=== PATIENT | female | born 1990 | race African-American/Black ===

== ENCOUNTER → 2016-11-06 | Outpatient (CLI) | payer MEDICAID ==
--- NOTE | 2016-11-06 16:23 | RADIOLOGY REPORT (SQ) ---
EXAM DESCRIPTION: U/S [id number] TRNABD 1GES W/ODOP COMPLETED DATE/TIME: 11/06/2016 3:50 pm REASON FOR STUDY: ENCOUNTER FOR SUPERVISION OF NORMAL Z34.81 ENCOUNTER FOR SUPRVSN OF NOR MAL , FIRST TRIM COMPARISON: None. TECHNIQUE: Transabdominal static and realtime grayscale images acquired of the pelvis. Additional se lected spectral and color Doppler images recorded. All images stored on PACs. bHCG: Not available LIMITATIONS: Urinary bladder is very distended, flattening the lower uterine segment and cervix. FINDINGS: FETUS: Living intrauterine . EGA: 12 weeks 5 days by crown-rump length MARVIN: 05/16/2017 FHR: 150 beats per minute. SUBCHORIONIC BLEED: No SIZE OF BLEED: Not applicable. UTERUS: No masses. No anomalies. 17 x 9 x 7 cm in size CERVICAL LENGTH: 5 cm Closed. RIGHT ADNEXA: Not seen due to adnexal bowel gas LEFT ADNEXA: Not seen due to adnexal bowel gas FREE FLUID: None. OTHER: Placenta is developing anteriorly and is low lying. Because of the distended urinary bladder, it is difficult to discern if placenta previa is present. Recommend a repeat exam sometime later in the 2nd trimester to evaluate for placenta previa. IMPRESSION: LIVING INTRAUTERINE . EGA 12 weeks 5 days Low lying anterior placenta. Recommend repeat exam later in the 2nd trimester to evaluate for place nta previa Trimester of : First - 0 to 13 weeks. TECHNICAL DOCUMENTATION: JOB ID: [id number] [employer]- All Rights Reserved
== END ==
LOC: RAD 15:11
PROVIDERS: ATTEND Nurse Practitioner Women's Health
DX: Z34.81 Encounter for supervision of other normal pregnancy, first trimester (principal)
CPT/HCPCS: 76801

== ENCOUNTER 2017-05-13 04:51 | Inpatient (IN) | payer MEDICAID ==
[2017-05-12 12:53] LABS: APPEARANCE,URINE SLIGHTLY-CLOUDY; BILIRUBIN,URINE NEGATIVE (NEGATIVE); COLOR,URINE YELLOW; GLUCOSE, URINE NEGATIVE (NEGATIVE); KETONES,URINE NEGATIVE (NEGATIVE); LEUKOCYTE ESTERASE,URINE LARGE (NEGATIVE); NITRITE,URINE NEGATIVE (NEGATIVE); PROTEIN,URINE NEGATIVE (NEGATIVE); URINE SPECIFIC GRAVITY 1.011; UROBILINOGEN,URINE NEGATIVE mg/dL (<2.0)
[2017-05-12 12:59] LABS: ABSOLUTE EOSINOPHILS # (AUTO) 0.1 10^3/uL (0.0-0.6); ABSOLUTE LYMPHOCYTES (AUTO) 2.1 10^3/uL (0.5-4.7); ABSOLUTE MONOCYTES (AUTO) 0.7 10^3/uL (0.1-1.4); ABSOLUTE NEUT (AUTO) 8.9 10^3/uL (1.7-8.2); BASOPHILS % (AUTO) 0.3 % (0-2); EOSINOPHILS % (AUTO) 0.9 % (0-6); HEMATOCRIT 36.8 % (36.0-47.0); HEMOGLOBIN 12.4 g/dL (12.0-15.5); LYMPHOCYTES % (AUTO) 18.1 % (13-45); MEAN CORPUSCULAR HEMOGLOBIN 27.3 pg (27.0-33.4); MEAN CORPUSCULAR HGB CONC 33.6 g/dL (32.0-36.0); MEAN CORPUSCULAR VOLUME 81 fl (80-97); MONOCYTES % (AUTO) 5.5 % (3-13); PLATELET COUNT 250 10^3/uL (150-450); RED BLOOD COUNT 4.53 10^6/uL (3.72-5.28); RED CELL DISTRIBUTION WIDTH 17.3 % (11.5-14.0); SEGMENTED NEUTROPHILS % (AUTO) 75.2 % (42-78); TOTAL CELLS COUNTED % (AUTO) 100 %; WHITE BLOOD COUNT 11.8 10^3/uL (4.0-10.5)
[2017-05-12 13:06] LABS: URINE AMPHETAMINES SCREEN NEGATIVE; URINE BARBITURATES SCREEN NEGATIVE; URINE BENZODIAZEPINES SCREEN NEGATIVE; URINE COCAINE SCREEN NEGATIVE; URINE MARIJUANA (THC) SCREEN NEGATIVE; URINE METHADONE SCREEN NEGATIVE; URINE PHENCYCLIDINE SCREEN NEGATIVE
[2017-05-13] MEDS ORDERED: AZITHROMYCIN 500 MG in DEXTROSE 5%-WATER 250 ML IV PRN (05:00)
[2017-05-13] MEDS ORDERED: CEFAZOLIN 1 GM/D5W RTU 1 GM/50 ML RTUPB IV PRN (05:00)
[2017-05-13] MEDS ORDERED: LIDOCAINE 0.5% INJ-PF (5 MG/ML) 50 ML SDV SUBCUT PRN (05:00)
[2017-05-13] MEDS ORDERED: RINGERS SOLUTION,LACTATED 1,500 ML IV PRN (05:00)
[2017-05-13] MEDS ORDERED: LACTATED RINGERS 1000 ML IV PRN (05:00)
[2017-05-13] MEDS ORDERED: AZITHROMYCIN INJ 500 MG VIAL IV ONE (05:35)
[2017-05-13] MEDS ORDERED: OXYTOCIN/NORMAL SALINE 20 UNIT/1,000 ML RTUINJ ONE (07:25)
[2017-05-13] MEDS ORDERED: OXYTOCIN 10 UNIT/ML VIAL ONE (07:26)
[2017-05-13] MEDS ORDERED: MIDAZOLAM 2 MG/2 ML INJ ONE (07:26)
[2017-05-13] MEDS ORDERED: EPHEDRINE SULFATE INJ 50 MG/1 ML AMPULE ONE (07:26)
[2017-05-13] MEDS ORDERED: FENTANYL CITRATE INJ/PF 100 MCG/2 ML AMPUL ONE (07:26)
[2017-05-13] MEDS ORDERED: MORPHINE SULFATE 10 MG/ML INJ IV PRN (08:01)
[2017-05-13] MEDS ORDERED: MEPERIDINE HCL/PF INJ 25 MG/1 ML DISP.SYRIN IV PRN (08:01)
[2017-05-13] MEDS ORDERED: PROMETHAZINE HCL INJ 25 MG/1 ML VIAL IV PRN ×2 (08:01)
[2017-05-13] MEDS ORDERED: ONDANSETRON HCL INJ/PF 4 MG/2 ML SDV IV PRN (08:01)
[2017-05-13] MEDS ORDERED: DIPHENHYDRAMINE HCL 50 MG/ML VIAL IV PRN (08:01)
[2017-05-13] MEDS ORDERED: FENTANYL CITRATE INJ/PF 100 MCG/2 ML AMPUL IV PRN ×3 (08:01)
[2017-05-13] MEDS ORDERED: ACETAMINOPHEN 100 ML IV ONE (08:18)
--- NOTE | 2017-05-13 08:33 | Warning Signs in Babies ---
VOD Warning Signs Datetime Report Generated by [facility]: 05/13/2017 08:32 VOD#608 -Warning Signs in Babies: Needs to be viewed. (05/13/2017 08:20:Pattie Alonso RN)
--- NOTE | 2017-05-13 09:10 | OPERATIVE REPORT E ---
Operative Report NAME: XU ZALDIVAR : 1990 AGE: 26Y DATE OF SURGERY: 05/13/2017 ROOM: 226 PREOPERATIVE DIAGNOSIS: IUP AT TERM WITH PRIOR SECTION. POSTOPERATIVE DIAGNOSIS: IUP AT TERM WITH PRIOR SECTION. PROCEDURE: A repeat low-transverse , delivery of a viable male infant. Apgars were 8 and 9. Weight was 7 pounds 6 ounces. SURGEON: August MARIE M.D. ANESTHESIA: Spinal. ESTIMATED BLOOD LOSS: Less than 600 mL. TISSUE REMOVED OR ALTERED: Placenta. PROCEDURE: Patient was placed in a supine position and rolled on her right side, prepped and draped in sterile fashion. Pfannenstiel incision was made through then existing Pfannenstiel eschar, and the incision extended through the subcutaneous tissue and *------* sharp dissection. Fascia sharply divided, rectus muscle bluntly and sharply divided. *------* sharp dissection. The uterus nicked in the midline, extended bilaterally. was then delivered through the uterine abdominal incision. Nose and mouth suctioned with a bulb syringe. Cord was clamped, the infant was passed from the table. Placenta was manually extracted. Uterus closed in 2 layers using 0 Vicryl, the first in a running stitch and the second in a Lembert stitch, imbricating the first layer. There was an area of bleeding in the midportion, controlled with a [id number] suture of 0 Vicryl. Hemostasis was noted. Fascia closed with 0 Vicryl. Skin was closed with subcuticular absorbable galdino. Patient's urine remained clear throughout her procedure She was taken to the recovery room in good condition, and the to nursery in good condition. DICTATING PHYSICIAN: August MARIE M.D. [id number] PHY#: [id number] ID: [id number] JOB#: [id number] ACCT: [id number] cc:August MARIE M.D. >
[2017-05-13] MEDS ORDERED: METOCLOPRAMIDE HCL INJ/PF 10 MG/2 ML SDV ONE (09:57)
[2017-05-13] MEDS ORDERED: KETOROLAC TROMETHAMINE 60 MG/2 ML SDV ONE (09:57)
[2017-05-13] MEDS ORDERED: DEXAMETHASONE SOD PHOSPHATE INJ 4 MG/1 ML VIAL ONE (09:57)
[2017-05-13] MEDS ORDERED: ONDANSETRON HCL INJ/PF 4 MG/2 ML SDV ONE (09:57)
[2017-05-13] MEDS ORDERED: OXYTOCIN/NORMAL SALINE 20 UNIT/1,000 ML RTUINJ INJ PRN (10:57)
[2017-05-13] MEDS ORDERED: RINGERS SOLUTION,LACTATED 1,000 ML IV PRN (10:58)
[2017-05-13] MEDS ORDERED: OXYCODONE-ACETAMINOPHEN 5-325 MG TABLET PO PRN (11:00)
[2017-05-13] MEDS ORDERED: MEASLES,MUMPS&RUBELLA VACC/PF 0.5 ML VIAL SUBCUT PRN (11:00)
[2017-05-13] MEDS ORDERED: PROMETHAZINE HCL INJ 25 MG/1 ML VIAL IM PRN (11:00)
[2017-05-13] MEDS ORDERED: ACETAMINOPHEN 325 MG TABLET PO PRN (11:00)
[2017-05-13] MEDS ORDERED: DIPH/PERTUSS(ACELL)/TETANUS VAC/PF 0.5 ML SYR (>=10YO) IM PRN (11:00)
[2017-05-13] MEDS ORDERED: SIMETHICONE 80 MG TAB.CHEW PO PRN (11:00)
[2017-05-13] MEDS ORDERED: RINGERS SOLUTION,LACTATED 1,000 ML IV SCH (11:00)
[2017-05-13] MEDS ORDERED: HYDROMORPHONE HCL INJ/PF 2 MG/ML AMPULE IV PRN (11:00)
[2017-05-13] MEDS: IBUPROFEN 800 MG TABLET PO SCH ×2 (11:32→17:56)
[2017-05-13] MEDS: OXYCODONE-ACETAMINOPHEN 5-325 MG TABLET PO PRN ×3 (11:38→23:02)
[2017-05-13] MEDS: DOCUSATE SODIUM 100 MG CAPSULE PO SCH (17:54)
[2017-05-14] MEDS: IBUPROFEN 800 MG TABLET PO SCH ×5 (00:48→23:20)
[2017-05-14 06:46] LABS: HEMOGLOBIN 10.9 g/dL (12.0-15.5); MEAN CORPUSCULAR HEMOGLOBIN 27.5 pg (27.0-33.4); MEAN CORPUSCULAR HGB CONC 34.1 g/dL (32.0-36.0); MEAN CORPUSCULAR VOLUME 81 fl (80-97); PLATELET COUNT 214 10^3/uL (150-450); RED BLOOD COUNT 3.96 10^6/uL (3.72-5.28); RED CELL DISTRIBUTION WIDTH 17.6 % (11.5-14.0); WHITE BLOOD COUNT 14.5 10^3/uL (4.0-10.5)
[2017-05-14] MEDS: PRENATAL VITAMIN W DHA CAPSULE PO SCH (09:46)
[2017-05-14] MEDS: DOCUSATE SODIUM 100 MG CAPSULE PO SCH ×2 (09:47→19:07)
--- NOTE | 2017-05-14 10:40 | PDOC PROGRESS REPORT ---
Subjective-OB Subjective: Post Delivery Day: 26 year old. Denies any needs at this time Physical Exam (OB) Vital Signs: Temp Pulse Resp BP Pulse Ox 98.0 F 66 18 137/71 H 100 05/14/17 08:06 05/14/17 08:06 05/14/17 08:06 05/14/17 08:06 05/14/17 08:06 Intake & Output 05/13/17 05/14/17 05/15/17 06:59 06:59 06:59 Intake Total 1595 Output Total 2550 Balance -955 Weight 126.4 kg - PIH/Pre-Eclampsia DTR's: 2 + Clonus: Negative Headache: Absent Epigastric Pain: No Visual Changes: No - Dressing Removed: No Incision: Dressing - Bilateral Tubal Ligation Dressing Removed: No - Lochia Lochia Amount: Small 10-25 ml Lochia Color: Rubra/Red - Abdomen Description: Tender, Soft Hernia Present: No Bowel Sounds: Normoactive Flatus Presence: Present Stool: No Fundal Description: Firm Fundal Height: u/u - u/2 Objective-Diagnostic Laboratory: 05/14/17 06:35 05/14/17 06:35 WBC 14.5 H RBC 3.96 Hgb 10.9 L Hct 32.0 L MCV 81 MCH 27.5 MCHC 34.1 RDW 17.6 H Plt Count 214
[2017-05-14] MEDS: OXYCODONE-ACETAMINOPHEN 5-325 MG TABLET PO PRN (11:37)
[2017-05-15] MEDS: IBUPROFEN 800 MG TABLET PO SCH ×2 (05:37→12:06)
[2017-05-15] MEDS: PRENATAL VITAMIN W DHA CAPSULE PO SCH (10:28)
[2017-05-15] MEDS: DOCUSATE SODIUM 100 MG CAPSULE PO SCH (10:28)
--- NOTE | 2017-05-15 10:46 | PDOC DISCHARGE SUMMARY ---
Final Diagnosis Discharge Date: 05/15/17 - Final Diagnosis (1) Delivery by elective caesarean section Is this a current diagnosis for this admission?: Yes Discharge Data - Discharge Medication Home Medications: Prenat 115/Iron Fum/Folic/Dss [ 19 Tablet] 1 tab PO DAILY 08/20/14 Reason(s) for Admission: Ceasarean Section-Repeat Procedures: None Intrapartum Procedure(s): : Low Cervical, Transverse - Diagnosis Test Laboratory: Temp Pulse Resp BP Pulse Ox 97.9 F 68 18 125/76 100 05/15/17 10:04 05/15/17 10:04 05/15/17 10:04 05/15/17 10:04 05/15/17 10:04 05/12/17 05/12/17 05/14/17 12:19 12:25 06:35 RBC 4.53 3.96 Hgb 12.4 10.9 L Hct 36.8 32.0 L Urine Opiates Screen NEGATIVE - Discharge information/Instructions Discharge Activity: Activity As Tolerated, Balance Activity w/Rest, No Driving, No Lifting Over 10 Pounds, No Lifting/Push/Pulling, Pelvic Rest, Slowly Increase Activity, No tub bath Discharge Diet: Regular Disposition: HOME, SELF-CARE Follow [facility] with: [facility] in: 5, Days
[2017-05-15 12:19] VITALS: BP 128/79
== END 2017-05-15 13:26 | disposition home or self-care (01) | DRG 765 ==
LOC: 2S 04:51
PROVIDERS: ADMIT Obstetrics & Gynecology Gynecology; ATTEND Obstetrics & Gynecology Gynecology
PROC: 4A1HXCZ Monitoring of Products of Conception, Cardiac Rate, External Approach (ICD-10-PCS; 2017-05-13)
PROC: 10D00Z1 Extraction of Products of Conception, Low, Open Approach (ICD-10-PCS; principal; 2017-05-13 07:45)
PROC: 3E0234Z Introduction of Serum, Toxoid and Vaccine into Muscle, Percutaneous Approach (ICD-10-PCS; 2017-05-15)
DX: O99.214 Obesity complicating childbirth (principal); Z68.43 Body mass index [BMI] 50.0-59.9, adult; O34.211 Maternal care for low transverse scar from previous cesarean delivery; E66.9 Obesity, unspecified; Z23 Encounter for immunization; Z28.21 Immunization not carried out because of patient refusal; Z37.0 Single live birth
CPT/HCPCS: 1961; 36415; 59025; 80307; 81001; 85025; 85027; 86850; 86900; 86901; 90715; 94799; J0131; J0456; J0690; J1100; J1885; J2250; J2405; J2590; J2765; J3010; J3490; J7060; J7120